=== PATIENT | male | born 1960 | race African-American/Black ===

== ENCOUNTER 2020-03-26 06:55 | Emergency (ER) | payer OTHER ==
[~2020-03-26] VITALS: Ht 177.8 cm; Wt 134.0 kg
[2020-03-26 08:07] VITALS: BP 171/78
[2020-03-26] MEDS ORDERED: DEXAMETHASONE 4 MG TABLET PO ONE (08:30)
--- NOTE | 2020-03-26 08:51 | PHYS DOC ---
Past Medical History Past Medical History: Diabetes-Type II, High Cholesterol, Hypertension, S inusitis Past Surgical History: Other Additional Past Surgical Histo: ROTATOR CUFF BILATERAL Smoking Status: Never Smoker Alcohol Use: Rarely General Adult EDM: Chief Complaint: COUGH HPI: HPI: 60-year-old male presents with sinus pressure, headache, nonproductive cough, body aches, and fever that started last night. Patient reports T-max 101. Patient reports history of chronic sinusitis which he typically gets when the weather changes. Patient reports symptoms today appear different than prior episodes. Patient does report taking some [place] and [id number] allergy medication yesterday. Denies taking any medication today. Patient denies known exposure to COVID-19. Patient does however work for the [employer] department. Review of Systems: Review of Systems: Constitutional: Reports fever and chills Eyes: Denies redness or eye pain HENT: Reports nasal congestion and sinus pressure Respiratory: Reports non-productive cough; denies shortness of breath Cardiovascular: Denies chest pain or palpitations GI: Denies abdominal pain, nausea, or vomiting : Denies dysuria or hematuria Musculoskeletal: Denies back pain or joint pain Integument: Denies rash or skin lesions Neurologic: Reports headache; denies focal weakness or sensory changes Complete systems were reviewed and found to be within normal limits, except as documented in this note. Current Medications: Current Medications Medications (Trade) Dose Ordered Sig/Jet Start Time Stop Time Status Last Admin Dose Admin Dexamethasone (Decadron) 10 mg 1X ONCE 03/26/20 08:30 03/26/20 08:31 DC 03/26/20 08:37 10 MG Allergies: Allergies: Allergies Coded Allergies Type Severity Reaction Last Updated Verified bacitracin Adverse Reaction Unknown 04/30/15 Yes neomycin Adverse Reaction Unknown 04/30/15 Yes phentermine Adverse Reaction Unknown 04/30/15 Yes polymyxin B Adverse Reaction Unknown 04/30/15 Yes Physical Exam: PE: Constitutional: Well developed, well nourished, no acute distress, non-toxic appearance HENT: Normocephalic, atraumatic, nasal congestion noted, turbinates bilaterally enlarged, no pharyngeal erythema or exudate Eyes: Conjunctiva normal, no discharge Neck: Normal range of motion, no tenderness, supple, no meningeal signs Lungs & Thorax: No respiratory distress, equal chest rise and fall Abdomen: Soft, no tenderness Skin: Warm, dry, no erythema, no rash Extremities: No tenderness, ROM intact, no edema Neurologic: Alert and oriented X 3, no focal deficits noted Psychologic: Affect normal, judgment normal Current Patient Data: Vital Signs: Vital Signs Date Time Temp Pulse Resp B/P (MAP) Pulse Ox O2 Delivery O2 Flow Rate FiO2 03/26/20 08:07 99.3 68 20 171/78 (109) 98 Room Air 99.3 EKG: EKG: [] Radiology/Procedures: Radiology/Procedures: PROCEDURE: CHEST AP ONLY CHEST AP ONLY History: Cough Comparison: January 29, 2010 Findings: Single view of the chest is submitted. Pericardial cardiac silhouette is stable. There is no dependent pleural fluid, pneumothorax, or lobar infiltrate. There is again degree of eventration of the bilateral hemidiaphragms. Impression: 1. No infiltrate is identified by radiograph. Electronically signed by: Alvaro Maurer MD (03/26/2020 8:50 AM) [id number] Course & Med Decision Making: Course & Med Decision Making Pertinent Labs and Imaging studies reviewed. (See chart for details) Patient presents with HPI and physical exam concerning for possible viral illness including COVID-19. COVID precautions in place. COVID testing pending. Chest x-ray without acute process. Patient stable for discharge with outpatient follow-up with PCP. Discussed findings and plan with patient, who acknowledges understanding and agreement. Joya Disclaimer: Joya Disclaimer: This electronic medical record was generated, in whole or in part, using a voice recognition dictation system. Departure Departure Impression: Primary Impression: Viral syndrome Additional Impression: Suspected 2019 novel coronavirus infection Disposition: HOME, SELF-CARE Condition: STABLE Referrals: KOFI MARIEE MD (PCP) Patient Instructions: Viral Syndrome Additional Instructions: You have been tested for or diagnosed with COVID-19. It is an infection caused by a new type of coronavirus. COVID-19 will cause cold-like or mild flu symptoms in most. It can cause more severe symptoms like problems breathing in some. There is no treatment for COVID-19. The body will clear the infection over time. Self-care will help to ease discomfort. Steps to Take: Self-Care Rest as needed. Healthy habits may help you feel better. Steps include: Choose healthy foods including fruits and vegetables. Drink water throughout the day. Get plenty of sleep each night. If you smoke, try to quit. It may ease breathing. Avoid alcohol. Keep Others Healthy The virus can spread to others. Droplets are released every time you sneeze or cough. The droplets can get into the mouth, nose, or eyes of people near you and lead to infection. To lower the chances of spreading COVID-19 to others: Stay at home until your doctor has said it is safe to leave. If you tested positive this will mean staying isolated until both of the following are true: At least 7 days have passed since the start of illness. You are free of fever for at least 72 hours without the use of medicine. During this time: - Avoid public areas, events, or transportation. Do not return to work or school until your doctor has said it is safe to do so. - Call ahead if you need to go to a medical center. Let them know you may have COVID-19. It will help them guide you where to go. They may also ask you to wear a facemask w hen you come to the office. - If you call for emergency medical services, let them know you may have COVID- 19. While at home: - Try to avoid close contact with others. Stay about 6 feet away. - If possible, spend most of your time in a separate room from others. - Use a face mask if you will be in close contact with others such as sharing a room or vehicle. - Have someone wipe down common surfaces in the home. Use household barrel filler head every day on areas like doorknobs, counters, or sinks. - Cough or sneeze into a tissue. Throw the tissue away right after use. If a tissue is not available, cough or sneeze into your elbow. - Wash your hands often. Wash them after sneezing or coughing. Use soap and water and wash for at least 20 seconds. Alcohol based hand signs cleaner can be used if soap and water is not available. - Do not prepare food for others. Avoid sharing personal items like forks, spoons, or toothbrushes. - Avoid close contact with pets while you are sick. There is no evidence of the virus passing to pets. This is a safety step until more is known about this virus. Isolation can be frustrating. Social interaction can help. Keep in touch with friends and family through phone and tech options. You can still interact with others in your home, just keep a safe distance of about 6 feet. Follow-up: Your doctors office will check in with you to see if there are any changes in your health. You may be asked to keep track of symptoms to share with them. They will also let you know when you are clear to be in public again. Problems to Look Out For: Contact your doctor if your recovery is not going as you expect. Get emergency care if you have problems such as: - Trouble breathing - Nonstop chest pain or pressure - Changes in awareness, confusion, or problems waking - Lips or face have bluish color - Worsening of symptoms If you think you have an emergency, call for emergency medical services right away. As taken from [facility] Justicifation of Admission Dx: Justifications for Admission: Justification of Admission Dx: N/A MARGOT SPENCER DO Mar 26, 2020 08:51
--- NOTE | 2020-03-27 10:01 | NUR ---
IP: Informed pt of + COVID results and need to self quarantine for 14 days. All questions answered. Pt verbalized understanding.
== END 2020-03-26 09:07 | disposition home or self-care (01) ==
LOC: ER 06:55
DX: B34.9 Viral infection, unspecified (principal); U07.1 COVID-19; E11.9 Type 2 diabetes mellitus without complications; E78.00 Pure hypercholesterolemia, unspecified; I10 Essential (primary) hypertension; Z88.1 Allergy status to other antibiotic agents; Z88.8 Allergy status to other drugs, medicaments and biological substances
CPT/HCPCS: 71045; 99284; C9803; U0003

== ENCOUNTER 2020-11-07 07:29 | Emergency (ER) | payer OTHER ==
[~2020-11-07] VITALS: Ht 180.3 cm; Wt 131.0 kg
[2020-11-07 07:39] VITALS: BP 122/78
--- NOTE | 2020-11-07 09:41 | RAD ---
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 Instructions: / Histo ry: Technique: AP view the pelvis and 2 additional views of the right hip. Comparison: None. Findings: Normal alignment. No fracture. Moderate bilateral hip DJD. Lower lumbar spondylosis. Vascular calcifi cations. Impression: 1. No acute osseous abnormality. 2. Moderate bilateral hip DJD. Electronically signed by: Benji Pham DO (11/07/2020 9:39 AM) [id number]
--- NOTE | 2020-11-07 10:22 | PHYS DOC ---
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 Patient felt like he sprained his right groin muscle, having pain when he have to turn a certain way when he walk. He denied any pain when he sits still. Patient denies any abdominal pain, no back pain, no bowel or bladder incontinence. Patient denies any weakness or numbness in his lower extremity. Review of Systems: Review of Systems: Constitutional: Denies fever or chills. [] Eyes: Denies change in visual acuity. [] HENT: Denies nasal congestion or sore throat. [] Respiratory: Denies cough or shortness of breath. [] Cardiovascular: Denies chest pain or edema. [] GI: Denies abdominal pain, nausea, vomiting, bloody stools or diarrhea. [] : Denies dysuria. [] Musculoskeletal: Denies back pain , positive for right groin pain. Integument: Denies rash. [] Neurologic: Denies headache, focal weakness or sensory changes. [] Endocrine: Denies polyuria or polydipsia. [] Lymphatic: Denies swollen glands. [] Psychiatric: Denies depression or anxiety. [] Heart Score: C/O Chest Pain: N/A Risk Factors: Risk Factors: DM, Current or recent (<one month) smoker, HTN, HLP, family history of CAD, obesity. Risk Scores: Score 0 - 3: 2.5% MACE over next 6 weeks - Discharge Home Score 4 - 6: 20.3% MACE over next 6 weeks - Admit for Clinical Observation Score 7 - 10: 72.7% MACE over next 6 weeks - Early Invasive Strategies Allergies: Allergies: Allergies Coded Allergies Type Severity Reaction Last Updated Verified bacitracin Adverse Reaction Unknown 04/30/15 Yes neomycin Adverse Reaction Unknown 04/30/15 Yes phentermine Adverse Reaction Unknown 04/30/15 Yes polymyxin B Adverse Reaction Unknown 04/30/15 Yes Physical Exam: PE: Constitutional: Well developed, well nourished, no acute distress, non-toxic appearance. [] HENT: Normocephalic, atraumatic, bilateral external ears normal, oropharynx moist, no oral exudates, nose normal. [] Eyes: PERRLA, EOMI, conjunctiva normal, no discharge. [] Neck: Normal range of motion, no tenderness, supple, no stridor. [] Cardiovascular:Heart rate regular rhythm, no murmur [] Lungs & Thorax: Bilateral breath sounds clear to auscultation [] Abdomen: Bowel sounds normal, soft, no tenderness, no masses, no pulsatile masses. [] Skin: Warm, dry, no erythema, no rash. [] Back: No tenderness, no CVA tenderness. [] Extremities: No tenderness, no cyanosis, no clubbing, ROM intact, no edema. RI GHT GROIN AREA IS TENDER WHEN IT WAS MANIPULATED IN FLEXION OR EXTENSION OF RIGHT HIP. NO HEMATOMA, NO SWELLING. Neurologic: Alert and oriented X 3, normal motor function, normal sensory function, no focal deficits noted. [] Psychologic: Affect normal, judgement normal, mood normal. [] Current Patient Data: Vital Signs: Vital Signs Date Time Temp Pulse Resp B/P (MAP) Pulse Ox O2 Delivery O2 Flow Rate FiO2 11/07/20 07:39 98.2 63 18 122/78 (93) 96 Room Air 98.2 EKG: EKG: [] Radiology/Procedures: Radiology/Procedures: [][facility] [address] [place] [address] IMAGING REPORT Signed PATIENT: JUSTIN HOUSE ACCOUNT: [id number] : 1960 LOCATION: ER AGE: 60 SEX: M EXAM STATUS: REG ER ORD. 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 Instructions: / History: Technique: AP view the pelvis and 2 additional views of the right hip. Comparison: None. Findings: Normal alignment. No fracture. Moderate bilateral hip DJD. Lower lumbar spondylosis. Vascular calcifications. Impression: 1. No acute osseous abnormality. 2. Moderate bilateral hip DJD. Electronically signed by: Benji Pham DO (11/07/2020 9:39 AM) [id number] DICTATED and SIGNED BY: BENJI PHAM DO DATE: 11/07/20 [id number] 0 Course & Med Decision Making: Course & Med Decision Making Pertinent Labs and Imaging studies reviewed. 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 Patient sprained the muscle in his right groin area. X-ray of his right hip show some arthritis changes but his hip. Patient did not have any pain when he lay down still, complains some pain when he got up and walk around. Patient will need to follow-up with his family physician for reevaluation. He was given a note for off work for the next 4 days, he will need to see his doctor before he can go back to work. Joya Disclaimer: Joya Disclaimer: This electronic medical record was generated, in whole or in part, using a voice recognition dictation system. Departure Departure Impression: Primary Impression: Muscle strain Additional Impression: Groin injury Disposition: HOME / SELF CARE / HOMELESS Condition: STABLE Referrals: KOFI MARIEE MD (PCP) FOLLOW UP WITH YOUR DOCTOR THIS WEEK Patient Instructions: Arthritis, Degenerative-Brief, Muscle Strain KELSEA PLASCENCIA DO Nov 07, 2020 10:22
== END 2020-11-07 10:51 | disposition home or self-care (01) ==
LOC: ER 07:29
DX: S39.011A Strain of muscle, fascia and tendon of abdomen, initial encounter (principal); M16.0 Bilateral primary osteoarthritis of hip; E11.9 Type 2 diabetes mellitus without complications; E78.00 Pure hypercholesterolemia, unspecified; I10 Essential (primary) hypertension; Z88.1 Allergy status to other antibiotic agents; Z88.8 Allergy status to other drugs, medicaments and biological substances; X50.9XXA Other and unspecified overexertion or strenuous movements or postures, initial encounter; Y93.01 Activity, walking, marching and hiking; Y92.89 Other specified places as the place of occurrence of the external cause; Y99.8 Other external cause status
CPT/HCPCS: 73502; 99283

== ENCOUNTER 2021-10-14 01:34 | Emergency (ER) | payer OTHER ==
[~2021-10-14] VITALS: Ht 177.8 cm; Wt 134.0 kg
--- NOTE | 2021-10-14 02:25 | PHYS DOC ---
Past Medical History Past Medical History: Diabetes-Type II, High Cholesterol, Hypertension, S inusitis Past Surgical History: Other Additional Past Surgical Histo: ROTATOR CUFF BILATERAL Smoking Status: Never Smoker Alcohol Use: Occasionally General Adult EDM: Chief Complaint: NAUSEA/VOMITING/DIARRHEA HPI: HPI: Patient is a 61 year old male who presents with multiple complaints. He reports that he went to bed around 10:00 last night, then he woke up a few hours ago with mild chest pressure, which resolved within a few minutes, he reports that he had an episode of nausea, which is now resolved. He reports one episode of diarrhea. He denies abdominal pain. He denies palpitations. He denies dizziness or diaphoresis. No return of any nausea or chest pressure symptoms since then. He denies abdominal pain. He denies syncope, near syncope. He denies lower extremity pain or swelling. He denies fevers or chills. Denies cough or hemoptysis. Denies recent travel, surgery, hospitalization. He reports that he knows that he has anxiety issues, and he feels like he may have had a panic attack. This occurred similarly a few years ago, he sought treatment in the ED, was discharged home. He reports that within the last few months he had an outpatient treadmill stress test which was reportedly found to be unremarkable. He does admit to having a "stressful weekend." He denies SI or HI. Review of Systems: Review of Systems: Constitutional: Denies fever or chills. [] HENT: Denies nasal congestion or sore throat. [] Respiratory: Denies cough or shortness of breath. [] Cardiovascular: He reports one episode of chest tightness, currently resolved. No edema. No palpitations. No syncope GI: He denies abdominal pain. Reported a brief episode of nausea, now resolved. No vomiting. One episode of diarrhea. : Denies urinary symptoms. Musculoskeletal: Denies back pain or joint pain. [] Integument: Denies rash. [] Neurologic: Denies headache, focal weakness or sensory changes. He denies dizziness, vertigo, syncope. Psychiatric: Anxiety Heart Score: C/O Chest Pain: Yes HEART Score for Chest Pain: HEART Score for Chest Pain Response (Comments) Value History Slighlty/Non-Suspicious 0 ECG Nonspecific Repolarizatio 1 Age >45 - < 65 1 Total 2 Risk Factors: Risk Factors: DM, Current or recent (<one month) smoker, HTN, HLP, family history of CAD, obesity. Risk Scores: Score 0 - 3: 2.5% MACE over next 6 weeks - Discharge Home Score 4 - 6: 20.3% MACE over next 6 weeks - Admit for Clinical Observation Score 7 - 10: 72.7% MACE over next 6 weeks - Early Invasive Strategies Allergies: Allergies: Allergies Coded Allergies Type Severity Reaction Last Updated Verified bacitracin Adverse Reaction Unknown 04/30/15 Yes neomycin Adverse Reaction Unknown 04/30/15 Yes phentermine Adverse Reaction Unknown 04/30/15 Yes polymyxin B Adverse Reaction Unknown 04/30/15 Yes Physical Exam: PE: Constitutional: Well developed, well nourished, no acute distress, non-toxic appearance. [] HENT: Normocephalic, atraumatic, oropharynx patent and clear, mucous members are moist. No evidence of oral or facial trauma. Eyes: PERRL, EOMI, conjunctiva normal, no discharge. Sclera are clear and anicteric. Neck: Normal range of motion, no tenderness, supple, no stridor. Trachea is midline, no JVD. Cardiovascular:Heart rate regular rhythm, +2 radial and +2 posterior tibial pulses bilaterally Lungs & Thorax: Equal chest rise, no evidence of chest or thorax trauma, lungs are clear without rales, rhonchi or wheezes, no stridor Abdomen: Abdomen is soft, nondistended, nontender to palpation. No palpable masses organomegaly. No CVA tenderness. No palpable pulsatile mass. Skin: Warm, dry, no erythema, no rash. [] Back: No tenderness, no CVA tenderness. [] Extremities: No tenderness, no cyanosis, no clubbing, ROM intact, no edema. No calf tenderness. Neurologic: Alert and oriented X 3, normal motor function, normal sensory function, no focal deficits noted. [] Psychologic: He is mildly anxious, though he is pleasant and cooperative. EKG: EKG: EKG is interpreted at 0230 Rhythm is sinus Rate is 84 bpm [place] is normal low voltage No STEMI Radiology/Procedures: Radiology/Procedures: IMAGING REPORT Signed PATIENT: JUSTIN HOUSE ACCOUNT: [id number] : 1960 LOCATION: ER AGE: 61 SEX: M EXAM STATUS: REG ER ORD. PHYSICIAN: DEIRDRE BRANDON DO REASON: chest tightness PROCEDURE: PORTABLE CHEST 1V XR CHEST 1V History: Chest tightness. Comparison: 03/26/2020 Technique: Portable AP radiograph of the chest. Findings: The lungs are adequately inflated. No focal airspace opacification, pleural effusion or pneumothorax. The cardiomediastinal silhouette and pulmonary vasculature are within normal limits. Osseous structures and soft tissues are unremarkable. Impression: 1. No acute cardiopulmonary process. Electronically signed by: Jose Anderson MD (10/14/2021 4:29 AM) [facility] DICTATED and SIGNED BY: JOSE ANDERSON MD DATE: 10/14/21427 Course & Med Decision Making: Course & Med Decision Making Pertinent Labs and Imaging studies reviewed. (See chart for details) The patient has had no return of chest pressure. No return of nausea. No diarrhea produced here. Serial troponin exams are negative. Vital signs are stable. Blood pressure is improved I discussed the findings, differential diagnosis and plan of care with him. I recommended outpatient cardiology consultation, as well as follow-up with his primary care physician. Return precautions are given. Dragon Disclaimer: Dragon Disclaimer: This electronic medical record was generated, in whole or in part, using a voice recognition dictation system. Departure Departure Impression: Primary Impression: History of chest pain Additional Impressions: History of diarrhea History of nausea Disposition: HOME / SELF CARE / HOMELESS Condition: STABLE Referrals: KOFI MARIEE MD (PCP) FAISAL MCDOWELL MD Patient Instructions: Chest Pain (Nonspecific) Additional Instructions: Return to the ER immediately for more severe or persistent chest pain, shortness of breath, uncontrolled vomiting, abdominal pain, weakness, dizziness, fall, injury or for any other concerns. Please contact your primary care doctor for follow-up. Please follow-up with outpatient cardiology as well. DEIRDRE BRANDON DO Oct 14, 2021 02:25
[2021-10-14 03:18] LABS: BASO # 0.1 x10^3/uL (0.0-0.2); BASO % 1 % (0-3); EOS # 0.2 x10^3/uL (0.0-0.7); EOS % 4 % (0-3); HEMATOCRIT 45.4 % (39.0-53.0); HEMOGLOBIN 14.8 g/dL (13.0-17.5); LYMPH # 1.1 x10^3/uL (1.0-4.8); LYMPH % 20 % (24-48); MEAN CORPUSCULAR HEMOGLOBIN 26 pg (25-35); MEAN CORPUSCULAR HGB CONC 33 g/dL (31-37); MEAN CORPUSCULAR VOLUME 79 fL (79-100); MONO # 1.1 x10^3/uL (0.0-1.1); MONO % 20 % (0-9); NEUT % 56 % (31-73); PLATELET COUNT 271 x10^3/uL (140-400); RED BLOOD COUNT 5.74 x10^6/uL (4.30-5.70); RED CELL DISTRIBUTION WIDTH 15.9 % (11.5-14.5); WHITE BLOOD COUNT 5.5 x10^3/uL (4.0-11.0)
[2021-10-14 03:27] LABS: CALCIUM 8.6 mg/dL (8.5-10.1); GFR 92.2; POTASSIUM 3.9 mmol/L (3.5-5.1)
[2021-10-14 03:33] LABS: ALBUMIN 3.6 g/dL (3.4-5.0); ALBUMIN/GLOBULIN RATIO 0.9 (1.0-1.7); MAGNESIUM 2.2 mg/dL (1.8-2.4); TOTAL BILIRUBIN 0.3 mg/dL (0.2-1.0); TOTAL PROTEIN 7.5 g/dL (6.4-8.2)
[2021-10-14 04:26] LABS: BILIRUBIN,URINE NEGATIVE (NEG); CLARITY,URINE CLEAR; COLOR,URINE YELLOW; NITRITE,URINE NEGATIVE (NEG); PROTEIN,URINE TRACE mg/dL (NEG-TRACE)
[2021-10-14 04:27] LABS: BACTERIA,URINE 0 /HPF (0-FEW); RBC,URINE 0 /HPF (0-2); WBC,URINE 0 /HPF (0-4)
--- NOTE | 2021-10-14 04:32 | RAD ---
XR CHEST 1V History: Chest tightness. Comparison: 03/26/2020 Technique: Portable AP radiograph of the chest. Findings: The lungs are adequately inflated. No focal airspace opacification, pleural effusion or pneumothorax. The cardiomediastinal silhouette and pulmonary vasculature are within normal limits. Osseous structu res and soft tissues are unremarkable. Impression: 1. No acute cardiopulmonary process. Electronically signed by: Jose Monte MD (10/14/2021 4:29 AM) [facility]
[2021-10-14 04:53] LABS: % ATYL 1 % (0-0); % LYMPHS 25 % (24-48); % MONOS 11 % (0-10); % SEGS 63 % (35-66); PLT ESTIMATE ADEQUATE (ADEQUATE)
[2021-10-14 05:48] VITALS: BP 168/79
--- NOTE | 2021-10-14 07:20 | EKG ---
[facility] [address] [place] [address] Test Date: 2021-10-14 Test Time: 02:29:01 Pat Name: JUSTIN HOUSE Department: Room: Gender: M Radio Performer: [id number] : 1960 Requested By: DEIRDRE BRANDON Order Number: [id number] Reading MD: Lester Perez MD Measurements Intervals [place] Rate: 84 P: 52 ME: 226 QRS: 11 QRSD: 86 T: 36 QT: 354 QTc: 421 Interpretive Statements SINUS RHYTHM Electronically Signed On 10-22-2021 7:37:03 CDT by Lester Perez MD
== END 2021-10-14 06:30 | disposition home or self-care (01) ==
LOC: ER 01:34
DX: R07.89 Other chest pain (principal); R11.0 Nausea; R19.7 Diarrhea, unspecified; E11.9 Type 2 diabetes mellitus without complications; E78.00 Pure hypercholesterolemia, unspecified; I10 Essential (primary) hypertension; Z88.1 Allergy status to other antibiotic agents; Z88.8 Allergy status to other drugs, medicaments and biological substances
CPT/HCPCS: 36415; 71045; 80053; 81001; 83690; 83735; 83880; 84484; 85007; 85025; 93005; 99285-25